=== PATIENT | female | born 1950 | race Caucasian/White ===

== ENCOUNTER 2020-11-25 12:16 | Inpatient (IN) | payer MEDICARE ==
[~2020-11-25] VITALS: Ht 160 cm; Wt 82.8 kg
[2020-11-25 12:21] VITALS: BP 160/88
[2020-11-25] MEDS ORDERED: CELEBREX50 MG PO (12:38)
[2020-11-25] MEDS ORDERED: LISINOPRIL10 MG PO (12:38)
[2020-11-25] MEDS ORDERED: ASA81BEC PO (12:38)
[2020-11-25] MEDS ORDERED: LEVO-T25 MCG PO (12:38)
[2020-11-25] MEDS ORDERED: PROAIR HFA8.5 GM INH (12:38)
[2020-11-25] MEDS ORDERED: SYMBICORT160 MCG/4. INH (12:39)
[2020-11-25] MEDS ORDERED: BENTYL 10 MG CA10 M1 PO (12:39)
[2020-11-25 12:54] LABS: ABSOLUTE BASOPHILS 0.1 thou/uL (0.0-0.2); ABSOLUTE EOSINOPHILS 0.1 thou/uL (0.0-0.7); ABSOLUTE LYMPHOCYTES 1.7 thou/uL (0.8-5.3); ABSOLUTE MONOCYTES 0.5 thou/uL (0.0-1.2); ABSOLUTE NEUTROPHILS 3.9 thou/uL (1.6-8.1); HEMATOCRIT 36.6 % (37.0-47.0); HEMOGLOBIN 12.4 gm/dL (12.0-15.0); LYMPHOCYTES 27.7 %; MCH 30.4 pg (26.0-34.0); MCHC 33.9 g/dL (28.0-37.0); MCV 89.6 fL (80.0-100.0); MONOCYTES 8.3 %; MPV 9.1 fl. (7.2-11.1); NUCLEATED RBCS 0 /100WBC; PLATELET COUNT* 227 thou/uL (150-400); RBC 4.08 mil/uL (4.20-5.00); RDW-CV 14.2 % (10.5-14.5); WBC 6.3 thou/uL (4.0-11.0)
[2020-11-25 13:03] LABS: CALCIUM 8.5 mg/dL (8.5-10.1); CREATININE 1.7 mg/dL (0.6-1.3); POTASSIUM 4.2 mmol/L (3.5-5.1)
[2020-11-25 13:13] LABS: ALBUMIN 3.4 g/dL (3.4-5.0); MAGNESIUM 1.8 mg/dL (1.8-2.4); TOTAL BILIRUBIN 0.5 mg/dL (<0.1-1.0)
--- NOTE | 2020-11-25 13:47 | EKG ---
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
[2020-11-25 14:49] VITALS: BP 144/42
[2020-11-25 16:00] VITALS: BP 178/67
[2020-11-25 16:20] VITALS: BP 144/49
[2020-11-25 16:45] VITALS: BP 177/55
[2020-11-25] MEDS ORDERED: LISINOPRIL-HCT1 EAC1 PO (18:12)
[2020-11-25] MEDS ORDERED: LIPITOR 40 MG T40 M1 PO (18:13)
[2020-11-25] MEDS ORDERED: SINGULAIR 10 MG10 MG PO (18:13)
[2020-11-25] MEDS ORDERED: CELEBREX 200 M200 M1 PO (18:16)
[2020-11-25] MEDS ORDERED: SERTRALINE HCL100 MG PO (18:19)
[2020-11-25 20:00] VITALS: BP 148/58
[2020-11-26] VITALS: BP 139/46
[2020-11-26 04:00] VITALS: BP 126/72
[2020-11-26 04:22] LABS: HEMATOCRIT 31.7 % (37.0-47.0); HEMOGLOBIN 10.9 gm/dL (12.0-15.0); MCH 30.7 pg (26.0-34.0); MCHC 34.5 g/dL (28.0-37.0); MPV 9.5 fl. (7.2-11.1); RBC 3.56 mil/uL (4.20-5.00); RDW-CV 14.1 % (10.5-14.5); WBC 4.9 thou/uL (4.0-11.0)
[2020-11-26 04:34] LABS: CALCIUM 8.2 mg/dL (8.5-10.1); CREATININE 1.7 mg/dL (0.6-1.3); POTASSIUM 4.3 mmol/L (3.5-5.1)
[2020-11-26 04:38] LABS: ALBUMIN 2.9 g/dL (3.4-5.0); MAGNESIUM 1.7 mg/dL (1.8-2.4); TOTAL BILIRUBIN 0.2 mg/dL (<0.1-1.0); TOTAL PROTEIN 6.3 g/dL (6.4-8.2)
[2020-11-26 08:00] VITALS: BP 175/54
--- NOTE | 2020-11-26 10:32 | EKG ---
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 : 1950 Requested By: Randy Pena Order Number: [id number] Reading MD: Geo Perez Measurements Intervals [place] Rate: 67 P: 42 WI: 252 QRS: -86 QRSD: 156 T: 77 QT: 522 QTc: 551 Interpretive Statements Atrial-sensed ventricular-paced complexes No further analysis attempted due to paced rhythm Baseline wander in lead(s) V1 Compared to ECG 11/25/2020 12:25:17 paced beats now noted Electronically Signed On 11-26-2020 10:32:02 CDT by Geo Perez [email or web address] <ELECTRONICALLY SIGNED> By: Geo Perez MD, FAC 11/26/20 1032 0420 0420 Geo Perez MD, FAC /EPI
--- NOTE | 2020-11-26 11:26 | 2DMMODE ---
[place] [address] 2 D/M-MODE ECHOCARDIOGRAM Name: MAI QUILES Room: [address] IN [facility]#: [id number] Admission: 11/25/20 Attend Phys: Gay Montesinos, Discharge: Date of : 46 Date of Service: 11/26/20 1126 Report #: [id number] THIS REPORT FOR: cc: Mitra Santo Sarah Anne FNP Blick, David R. MD [facility] ~ APPROVED REPORT Study performed: 11/26/2020 09:25:00 EXAM: Comprehensive 2D, Doppler, and color-flow Echocardiogram Patient Location: In-Patient Room #: [facility] Status: routine BSA: 1.84 HR: 93 bpm BP: 175/54 mmHg Rhythm: NSR Other Information Study Quality: Adequate Indications Arrhythmia Pacemaker 2D Dimensions IVSd: 11.59 (7-11mm) LVOT Diam: 18.77 (18-24mm) LVDd: 51.88 mm PWd: 10.55 (7-11mm) Ascending Ao: 30.78 (22-36mm) LVDs: 34.45 (25-40mm) Aortic Root: 28.92 mm Volumes Left Atrial Volume (Systole) LA ESV Index: 32.40 mL/m2 Aortic Valve AoV Peak Teja.: 2.34 m/s AO Peak Gr.: 21.91 mmHg LVOT Max P.41 mmHg AO Mean Gr.: 11.53 mmHg LVOT Mean P.10 mmHg LVOT Max V: 1.69 m/s AO V2 VTI: 40.07 cm LVOT Mean V: 1.15 m/s EVELINE (VTI): 2.15 cm2 LVOT V1 VTI: 31.12 [place] [address] 2 D/M-MODE ECHOCARDIOGRAM Name: MAI QUILES Room: [address] IN [facility]#: [id number] Admission: 11/25/20 Attend Phys: Gay Montesinos, Discharge: Date of : 46 Date of Service: 11/26/20 1126 Report #: [id number] Mitral Valve MV Decel. Time: 147.39 ms MV PHT: 42.74 ms MVA (PHT): 5.15 cm2 TDI Lateral E' Teja.: 0.18 m/s Pulmonary Valve PV Peak Teja.: 2.35 m/s PV Peak Gr.: 22.07 mmHg Tricuspid Valve RAP Estimate: 5.00 mmHg TR Peak Gr.: 68.89 mmHg RVSP: 73.00 mmHg PA Pressure: 73.00 mmHg Left Ventricle The left ventricle is normal size. There is normal LV segmental wall motion. There is normal left ventricular wall thickness. Left ventricular systolic function is normal. The left ventricular ejection fraction is within the normal range. LVEF is 55-60%. This study is not technically sufficient to allow evaluation of the LV diastolic function. Right Ventricle The right ventricle is normal size. The right ventricular systolic function is normal. Pacemaker lead is present in the right ventricle. Atria Left atrium is mildly dilated. The right atrium size is normal. Aortic Valve Aortic valve is calcified. No aortic regurgitation is present. There mild aortic valvular stenosis. Mitral Valve The mitral valve is normal in structure. Mild mitral regurgitation. No evidence of mitral valve stenosis. Tricuspid Valve The tricuspid valve is normal in structure. Mild tricuspid regurgitation. pulmonary artery pressure 70 [place] [address] 2 D/M-MODE ECHOCARDIOGRAM Name: MAI QUILES Room: [address]#: [id number] Admission: 11/25/20 Attend Phys: Gay Montesinos, Discharge: Date of : 46 Date of Service: 11/26/20 1126 Report #: [id number] The pulmonary valve is normal in structure. High velocity through valve cannot exclude stenosis. Mild pulmonic regurgitation. Great Vessels The aortic root is normal in size. IVC is normal in size and collapses >50% with inspiration. Pericardium There is no pericardial effusion. <Conclusion> LVEF is 55-60%. Left atrium is mildly dilated. There mild aortic valvular stenosis. Mild mitral regurgitation. Mild tricuspid regurgitation. pulmonary artery pressure 70 mm Hg High velocity through valve cannot exclude stenosis. <ELECTRONICALLY SIGNED> By: Geo Perez MD, [facility] 11/26/20 1126 1126 1126 Geo Perez MD, FACC /INF
[2020-11-26 12:34] VITALS: BP 167/51
[2020-11-26 16:32] VITALS: BP 153/53
--- NOTE | 2020-11-26 16:47 | CON ---
[address] [address] CONSULTATION Name: KBMAI Ashish Room: [address] IN ..#: [id number] Admission: 11/25/20 Attend Phys: Gay Montesinos MD Discharge: Date of : 46 Report #: [id number] THIS REPORT FOR: cc: Mitra Santo Sarah Anne FNP Liston, Michael J. MD [facility] ~ DOC #: [id number] cc: SAVANNAH Mclaughlin MD DATE OF CONSULTATION: 11/25/2020 CARDIOLOGY CONSULTATION INDICATION FOR ADMISSION: Complete heart block. HISTORY OF PRESENT ILLNESS: The patient is a very pleasant 70-year-old white female who denies any prior history of cardiac issues. She was seen at her primary care physician's office today for refills and was noted to be profoundly bradycardic. EMS strip shows complete heart block. She was transferred to the Emergency Room here at [facility] for further evaluation and treatment. In the Emergency Room, the patient was found to be resting comfortably. She is without significant complaint. She appears to be in complete heart block with a heart rate of approximately 30 beats per minute. She denies any chest pain or shortness of breath. PAST MEDICAL HISTORY: 1. Hypertension. 2. Hypothyroidism. 3. DJD. 4. COPD/asthma. 5. Osteoporosis. 6. Depression. FAMILY HISTORY: Noncontributory. SOCIAL HISTORY: The patient smokes daily. She does not drink alcohol. REVIEW OF SYSTEMS: A 14-point review of systems as per HPI, otherwise unremarkable. PHYSICAL EXAMINATION: VITAL SIGNS: Blood pressure is 132/78, pulse is 30. Telemetry shows complete heart block. GENERAL: This is a pleasant lady who is in no [place] [address] CONSULTATION Name: MAI QUILES Room: [address]#: [id number] Admission: 11/25/20 Attend Phys: Gay Montesinos MD Discharge: Date of : 46 Report #: [id number]. HEENT: Extraocular muscles intact. Mucous membranes are moist. NECK: Shows no jugular venous distention. There are no carotid bruits. CHEST: Reveals clear lung nascimento without wheezes or rales. CARDIAC: Reveals a bradycardic rate, regular rhythm. I do not appreciate gallop or murmur. ABDOMEN: Reveals normal bowel sounds. Abdomen is soft, nontender. EXTREMITIES: Shows no edema. SKIN: Dry. LABORATORY DATA: A 12-lead EKG shows complete heart block. IMPRESSION AND RECOMMENDATIONS: 1. Complete heart block. The patient will be admitted for dual chamber pacemaker placement. 2. Hypertension, presently stable on current regimen. 3. Hypothyroidism, on replacement as outlined above. MD JAVED Mcclure/MADELYN <ELECTRONICALLY SIGNED> By: Randy Pena MD, FACC 11/26/20 1647 1503 [id number] Pena MD, FAC /nt
[2020-11-26] MEDS ORDERED: CIMETIDINE300 MG PO (18:32)
[2020-11-26 20:00] VITALS: BP 138/58
[2020-11-27 00:20] VITALS: BP 127/71
[2020-11-27 04:55] VITALS: BP 144/78
[2020-11-27 07:02] LABS: HEMATOCRIT 31.8 % (37.0-47.0); HEMOGLOBIN 10.9 gm/dL (12.0-15.0); MCHC 34.2 g/dL (28.0-37.0); MCV 87.7 fL (80.0-100.0); MPV 9.6 fl. (7.2-11.1); RBC 3.63 mil/uL (4.20-5.00); RDW-CV 14.3 % (10.5-14.5); WBC 12.2 thou/uL (4.0-11.0)
[2020-11-27 07:29] LABS: CALCIUM 8.8 mg/dL (8.5-10.1); CREATININE 1.6 mg/dL (0.6-1.3); TROPONIN-I LEVEL 0.11 ng/mL (<0.06)
[2020-11-27 08:00] VITALS: BP 118/55
[2020-11-27 12:00] VITALS: BP 163/75
[2020-11-27] MEDS ORDERED: PREDNISONE 20 M20 MG PO (15:18)
[2020-11-27] MEDS ORDERED: ALBUTEROL2.5 MG/31 INH (15:30)
[2020-11-27 15:32] VITALS: BP 163/75
--- NOTE | 2020-12-02 17:08 | CARD ---
[address] [address] CARDIAC CATH REPORT Name: MAI QUILES Ashish Room: [address]#: [id number] Admission: 11/25/20 Attend Phys: Gay Montesinos MD Discharge: 11/27/20 Date of : 46 Report #: [id number] THIS REPORT FOR: cc: Mitra Santo Sarah Anne FNP Liston, Michael J. MD [facility] ~ ADDENDUM APPROVED REPORT Study performed: 11/25/2020 13:55:02 Patient Status: ED Room #: 18 Event Personnel: Randy Pena Division Order Analyst, Azalea Dunham RN RN, Andrew Dc CUT OFF TENDER GLASS Monitor, Cesar Castillo RTR Scrub Exam: Insertion of Dual Chamber Permanent Pacemaker Indications: Complete Heart Block The patient is a 70 year-old female with a history of Complete heart block. Conscious Sedation Start time: 14:55 End Time: 15:21 Fentanyl 50 mcg Versed 2 mg Implanted Devices: Biotronik E. Mariana 8 DRT, model #184952, serial #[id number] dual-chamber pulse generator. Biotronik Solia S 60, model #225016, serial #[id number] ventricular lead. Biotronik Solia S 53, model #896590, serial #[id number] atrial lead. Procedure The patient underwent informed consent. We discussed the details of the procedure including the risks, which include, but not limited to bleeding, infection, vascular damage, cardiac perforation, and pneumothorax. She understood these risks and was willing to proceed. As such, she was brought to the EP/Cardiac Catheterization laboratory in a fasting and sedated state and prepped and draped in a sterile fashion, received IV antibiotics prior to initiation of the procedure and a venogram was performed showing patency of the left axillary vein. The patient underwent conscious sedation, with no related complications. The patient was brought to the EP/Cardiac Catheterization laboratory and the left chest and shoulder were prepped [place] [address] CARDIAC CATH REPORT Name: MAI QUILES Ashish Room: [address]#: [id number] Admission: 11/25/20 Attend Phys: Gay Montesinos MD Discharge: 11/27/20 Date of : 46 Report #: [id number] manner. During this case, Fluoroscopy and no contrast were used for imaging. IV conscious sedation was used throughout procedure with appropriate monitoring and was performed in the presence of a registered nurse who was an independent trained observer other than the physician performing the procedure. The left subclavian region was infiltrated with 2% Lidocaine subcutaneous anesthesia. A transverse incision was made in the left upper chest cavity. The subcutaneous pocket was formed via blunt dissection. Percutaneous venous access was achieved and an introducer sheath was inserted into the left Subclavian vein. Sheaths were positions using the modified Seldinger technique Through the introducer sheaths the atrial and ventricular lead wires were positioned in the right atrial appendage and right ventricular apex respectively. Capturing and sensing thresholds were verified. Electrode Parameters P Wave: 3.8 mV R Wave: 12.0 mV Atrial Threshold: 0.8 V at 0.40 ms Ventricular Threshold: 0.8 V at 0.40 ms 526 ohms Ventricular Resistance: 760 ohms Dual Chamber The atrial and ventricular leads were then secured using 0 silk sutures. The subcutaneous pocket was irrigated with ancef antibiotic solution.The atrial and ventricular leads were attached to the appropriate receptacles on the pulse generator and set screws firmly tightened to insure adequate contact and stability. The lead and pulse generator were placed into the subcutaneous pocket. Sharp and sponge counts were confirmed to be correct. At this time the pocket was closed subcutaneously with a 2.0 Vicryl and the skin was closed with a 4.0 Vicryl. The operative site was dressed in sterile fashion with steri strips and the patient was transferred to the floor in stable condition. Complications The patient tolerated the procedure well and there were no complications associated with the procedure. Conclusion 1. [place] [address] CARDIAC CATH REPORT Name: MAI QUILES Room: [address]#: [id number] Admission: 11/25/20 Attend Phys: Gay Montesinos MD Discharge: 11/27/20 Date of : 46 Report #: [id number] 2. Successful placement of a dual-chamber pacemaker with atrial and ventricular lead placement. Recommendations 1. Follow-up site check in 1 week. 2. Follow-up device interrogation in 1 month. <ELECTRONICALLY SIGNED> By: Randy Pena MD, [facility] 12/02/20 1708 1708 [id number] Pena MD, [facility] /INF
== END 2020-11-27 16:00 | disposition home or self-care (01) | DRG 242 ==
LOC: M.ERS 12:16 → M.TBA-ER 13:14 → M.2W 13:14 → M.TBA-ER 13:53 → M.2W 15:53
PROVIDERS: Emergency Medicine Emergency Medical Services; ADMIT Internal Medicine; ATTEND Internal Medicine
PROC: 02H63JZ Insertion of Pacemaker Lead into Right Atrium, Percutaneous Approach (ICD-10-PCS; principal; 2020-11-25)
PROC: B51N1ZZ Fluoroscopy of Left Upper Extremity Veins using Low Osmolar Contrast (ICD-10-PCS; principal; 2020-11-25)
PROC: 02HK3JZ Insertion of Pacemaker Lead into Right Ventricle, Percutaneous Approach (ICD-10-PCS; principal; 2020-11-25)
PROC: 0JH606Z Insertion of Pacemaker, Dual Chamber into Chest Subcutaneous Tissue and Fascia, Open Approach (ICD-10-PCS; principal; 2020-11-25)
DX: I44.2 Atrioventricular block, complete (principal); N17.0 Acute kidney failure with tubular necrosis; J44.1 Chronic obstructive pulmonary disease with (acute) exacerbation; I10 Essential (primary) hypertension; E03.9 Hypothyroidism, unspecified; M81.0 Age-related osteoporosis without current pathological fracture; M19.90 Unspecified osteoarthritis, unspecified site; F32.9 Major depressive disorder, single episode, unspecified; F17.210 Nicotine dependence, cigarettes, uncomplicated; Z20.822 Contact with and (suspected) exposure to COVID-19; Z79.82 Long term (current) use of aspirin; Z79.899 Other long term (current) drug therapy